=== PATIENT | male | born 1975 | race Caucasian/White ===

== ENCOUNTER 2023-01-10 07:00 | Day surgery (SDC) | payer OTHER ==
[~2023-01-10 07:00] MED LIST: Lactated Ringers 1,000 ML IV SCH; Sodium Chloride 0.9% 10 ML Syringe FLUSH PRN
[2023-01-10] MEDS ORDERED: Propofol 200 MG/20 ML SDV IV ONE (07:01)
[2023-01-10] MEDS ORDERED: Labetalol 100 MG/20 ML MDV IV ONE (07:01)
[2023-01-10] MEDS ORDERED: Glycopyrrolate 0.2 MG/ML 5 ML MDV IV ONE (07:01)
[2023-01-10 11:39] VITALS: BP 115/70; PULSE 56
== END 2023-01-10 09:58 | disposition home or self-care (01) ==
LOC: FB.SDS 07:00
PROVIDERS: ATTEND Surgery
DX: Z12.11 Encounter for screening for malignant neoplasm of colon (principal); D12.6 Benign neoplasm of colon, unspecified; Z80.0 Family history of malignant neoplasm of digestive organs; Z79.899 Other long term (current) drug therapy; Z79.82 Long term (current) use of aspirin; Z79.84 Long term (current) use of oral hypoglycemic drugs; Z98.890 Other specified postprocedural states; Z87.891 Personal history of nicotine dependence
CPT/HCPCS: 00812; 82947; 88305; J2704; J3490; J7120